=== PATIENT | female | born 1990 | race Caucasian/White ===

== ENCOUNTER 2016-10-11 09:36 | Emergency (ER) | payer MEDICAID ==
--- NOTE | 2016-10-11 11:56 | EDPHY ---
H & P Stated Complaint: Sore throat/URI/flu sxs x 3 days Time Seen by Provider: 10/11/16 11:16 HPI/ROS: CHIEF COMPLAINT: flu-like symptoms HISTORY OF PRESENT ILLNESS: 26-year-old female presents emergency department complaining of cough, nasal congestion, runny nose, sneezing, body aches, sore throat, subjective fevers and chills that started 2 days ago. Patient works at a preschool. Patient has been taking ibuprofen with minimal relief. She denies neck pain. No difficulty swallowing or managing her secretions. No chest pain. Patient denies nausea, vomiting, diarrhea, no abdominal pain. REVIEW OF SYSTEMS: A comprehensive 10 point review of systems is otherwise negative aside from elements mentioned in the history of present illness. Source: Patient Exam Limitations: No limitations - Personal History LMP (Females 10-55): 8-14 Days Ago Current Tetanus Diphtheria and Acellular Pertussis (TDAP): Yes - Medical/Surgical History Hx Asthma: No Hx Chronic Respiratory Disease: No Hx Diabetes: No Hx Cardiac Disease: No Hx Renal Disease: No Hx Cirrhosis: No Hx Alcoholism: No Hx HIV/AIDS: No Hx Splenectomy or Spleen Trauma: No Other PMH: healthy - Social History Smoking Status: Current some day smoker - Physical Exam Exam: General: Alert, nontoxic. ENT: Tympanic membranes clear, external auditory canal, external ear and surrounding soft tissue including over the mastoid unremarkable. Nasopharynx is injected, there is rhinorrhea. Oropharynx with erythema. There is no exudate. No tonsillar hypertrophy. No asymmetry. The uvula is midline. No elevation of tongue. There is no hoarseness. No drooling, patient has good control of their oral secretions. No trismus. No stridor. Cardiac: Regular rate and rhythm. Respiratory: Lungs clear to auscultation bilaterally. Neurological: no meningismus. Skin: No rashes. Constitutional: Initial Vital Signs Temperature (C) 36.7 C 10/11/16 09:45 Heart Rate 83 10/11/16 09:45 Respiratory Rate 17 10/11/16 09:45 Blood Pressure 96/58 L 10/11/16 09:45 O2 Sat (%) 98 10/11/16 09:45 O2 Delivery Mode Room Air Allergies/Adverse Reactions: No Known Allergies Allergy (Verified 10/11/16 09:47) Home Medications: Medication Instructions Recorded No Home Meds 04/13/14 Albuterol [Proventil Inhaler] 1 - 2 puffs IH Q4H #1 mdi 10/11/16 Fluticasone Nasal [Flonase Nasal 1 sprays NASAL DAILY #1 mdi 10/11/16 [place] (RX)] Guaifenesin/Codeine Phosphate 10 ml PO HS PRN #100 ml 10/11/16 [Guaifenesin-Codeine Liquid] Medical Decision Making ED Course/Re-evaluation: Influenza positive, will treat symptomatically. Patient has no evidence of pneumonia. - Data Points Laboratory Results: 10/11/16 10/11/16 10/11/16 Unknown 09:50 09:50 Influenza Typ A,B (DFA) POSITIVE FOR FLU A H (NEGATIVE) Group A Strep Screen NEGATIVE (NEGATIVE) Group A Strep DNA Pending Departure - Departure Disposition: Home, Routine, Self-Care Clinical Impression: Influenza A Condition: Good Instructions: Influenza (ED) Additional Instructions: Take over the counter Tylenol and ibuprofen as instructed. Rest, drink plenty of fluids. Use a saline nasal rinse, humidifier at night, hot steam showers. Use 2 puffs of albuterol inhaler every 4-6 hours as needed for cough, use 1 spray of Flonase in each nostril daily for 7 days. Use [id number] Sudafed and Mucinex as instructed on the package. Take cough syrup at night as prescribed, this has codeine in it, it will cause drowsiness. Return to the ED for difficulty breathing, chest pain, other concerns. Referrals: Farrukh Sapp MD [Primary Care Provider] - As per Instructions Prescriptions: Albuterol [Proventil Inhaler] 1 - 2 puffs IH Q4H #1 mdi Fluticasone Nasal [Flonase Nasal [place] (RX)] 1 sprays NASAL DAILY #1 mdi Guaifenesin/Codeine Phosphate [Guaifenesin-Codeine Liquid] 10 ml PO HS PRN #100 ml PRN Reason: Cough, Moderate
[2016-10-11] MEDS ORDERED: ACETAMINOPHEN 325 MG TAB PO ONE (12:09)
[2016-10-11 12:27] VITALS: BP 96/79; PULSE 64; RESP 18; TEMP 97.9; O2SAT 96
== END 2016-10-11 12:40 | disposition home or self-care (01) ==
DX: J10.1 Influenza due to other identified influenza virus with other respiratory manifestations (principal); F17.200 Nicotine dependence, unspecified, uncomplicated

== ENCOUNTER 2017-10-25 18:05 | Emergency (ER) | payer MEDICAID ==
--- NOTE | 2017-10-25 18:41 | EDPHY ---
H & P Stated Complaint: Flu like sxs today; Dx'd with MRSA yesterday but no testing done Time Seen by Provider: 10/25/17 18:40 HPI/ROS: CHIEF COMPLAINT: Flu symptoms HISTORY OF PRESENT ILLNESS: The patient presents the ED with a 1 day history of flu-like symptoms. She reportedly was diagnosed with a possible MRSA infection around her mouth and on her chest at urgent care 2 days ago. She was prescribed Bactrim. She reports that she has developed fever, cough, back pain over the past 24 hr. Additionally she has developed some urinary frequency. She denies any abdominal pain, vomiting or diarrhea. She feels as if she has had some progressive erythema on her chest and face. REVIEW OF SYSTEMS: A comprehensive 10 point review of systems is otherwise negative aside from elements mentioned in the history of present illness. Source: Patient Exam Limitations: No limitations - Personal History LMP (Females 10-55): 22-28 Days Ago Current Tetanus Diphtheria and Acellular Pertussis (TDAP): Yes - Medical/Surgical History Hx Asthma: No Hx Chronic Respiratory Disease: No Hx Diabetes: No Hx Cardiac Disease: No Hx Renal Disease: No Hx Cirrhosis: No Hx Alcoholism: No Hx HIV/AIDS: No Hx Splenectomy or Spleen Trauma: No Other PMH: healthy - Social History Smoking Status: Current some day smoker - Physical Exam Exam: General Appearance: Alert, no distress Eyes: Pupils equal and round no pallor or injection ENT, Mouth: Mucous membranes moist Respiratory: There are no retractions, lungs are clear to auscultation Cardiovascular: Regular rate and rhythm Gastrointestinal: Abdomen is soft and nontender, no masses, bowel sounds normal Neurological: A&O, normal motor function, normal sensory exam, normal cranial nerves Skin: Warm and dry, no rashes Musculoskeletal: Neck is supple nontender Extremities: symmetrical, full range of motion Constitutional: Initial Vital Signs Temperature (C) 37 C 10/25/17 18:07 Heart Rate 90 10/25/17 18:07 Respiratory Rate 18 10/25/17 18:07 Blood Pressure 102/55 L 10/25/17 18:07 O2 Sat (%) 96 10/25/17 18:07 O2 Delivery Mode Room Air Allergies/Adverse Reactions: No Known Allergies Allergy (Verified 10/25/17 18:06) Home Medications: Medication Instructions Recorded Sulfamethox/Tmp 800/160 mg 1 tab PO 10/25/17 [Bactrim Ds] Medical Decision Making ED Course/Re-evaluation: The patient presents to the emergency department for evaluation of fever, back pain, dysuria, erythema to her chest in the setting of a questionable MRSA infection around her lips and on her chest wall. I feel the patient certainly may be exhibiting some symptoms from a medication reaction from Bactrim. She has no intraoral lesions appreciated. Her vital signs are stable. The patient is noted to have a positive RSV test. Her urinalysis demonstrates no evidence of an infection. At this point time I am not certain the patient is having a MRSA infection I think that she should stop taking her antibiotics. I think she likely is having a viral exanthem from her RSV infection. The patient's urinalysis demonstrates no evidence of an acute infection. Her laboratory studies are reassuring. At this point time the patient will be advised to take Tylenol and ibuprofen as needed for her symptoms. Differential Diagnosis: Differential diagnosis considered includes influenza, RSV, medication reaction, cellulitis, MRSA - Data Points Laboratory Results: Laboratory Results 10/25/17 19:15 10/25/17 19:15 10/25/17 10/25/17 10/25/17 19:31 19:31 19:15 WBC RBC Hgb Hct MCV MCH MCHC RDW Plt Count MPV Neut % (Auto) Lymph % (Auto) [place] % (Auto) Eos % (Auto) Baso % (Auto) Nucleat RBC Rel Count Absolute Neuts (auto) Absolute Lymphs (auto) Absolute Monos (auto) Absolute Eos (auto) Absolute Basos (auto) Absolute Nucleated RBC Immature Gran % Immature Gran # Sodium Potassium Chloride Carbon Dioxide Anion Gap BUN Creatinine Estimated GFR Glucose Calcium Beta HCG, Qual NEGATIVE Urine Color PALE YELLOW Urine Appearance CLEAR Urine pH 7.0 (5.0-7.5) Ur Specific [place] 1.006 (1.002-1.030) Urine Protein NEGATIVE (NEGATIVE) Urine Ketones NEGATIVE (NEGATIVE) Urine Blood NEGATIVE (NEGATIVE) Urine Nitrate NEGATIVE (NEGATIVE) Urine Bilirubin NEGATIVE (NEGATIVE) Urine Urobilinogen NEGATIVE EU EU (0.2-1.0) Ur Leukocyte Esterase NEGATIVE (NEGATIVE) Urine RBC 1-3 /hpf /hpf (0-3) Urine WBC 1-3 /hpf /hpf (0-3) Ur Epithelial Cells TRACE /lpf /lpf (NONE-1+) Urine Glucose NEGATIVE (NEGATIVE) Nasal Influenza A PCR NEGATIVE FOR FLU A (NEGATIVE) Nasal Influenza B PCR NEGATIVE FOR FLU B (NEGATIVE) RSV (PCR) RSV DETECTED H (NEGATIVE) 10/25/17 10/25/17 19:15 19:15 WBC 3.90 10^3/uL 10^3/uL (3.80-9.50) RBC 4.16 10^6/uL L 10^6/uL (4.18-5.33) Hgb 13.7 g/dL g/dL (12.6-16.3) Hct 38.4 % % (38.0-47.0) MCV 92.3 fL fL (81.5-99.8) MCH 32.9 pg pg (27.9-34.1) MCHC 35.7 g/dL g/dL (32.4-36.7) RDW 12.6 % % (11.5-15.2) Plt Count 146 10^3/uL L 10^3/uL (150-400) MPV 9.5 fL fL (8.7-11.7) Neut % (Auto) 63.3 % % (39.3-74.2) Lymph % (Auto) 16.9 % % (15.0-45.0) [place] % (Auto) 18.7 % H % (4.5-13.0) Eos % (Auto) 0.3 % L % (0.6-7.6) Baso % (Auto) 0.5 % % (0.3-1.7) Nucleat RBC Rel Count 0.0 % % (0.0-0.2) Absolute Neuts (auto) 2.47 10^3/uL 10^3/uL (1.70-6.50) Absolute Lymphs (auto) 0.66 10^3/uL L 10^3/uL (1.00-3.00) Absolute Monos (auto) 0.73 10^3/uL 10^3/uL (0.30-0.80) Absolute Eos (auto) 0.01 10^3/uL L 10^3/uL (0.03-0.40) Absolute Basos (auto) 0.02 10^3/uL 10^3/uL (0.02-0.10) Absolute Nucleated RBC 0.00 10^3/uL 10^3/uL (0-0.01) Immature Gran % 0.3 % % (0.0-1.1) Immature Gran # 0.01 10^3/uL 10^3/uL (0.00-0.10) Sodium 137 mEq/L mEq/L (135-145) Potassium 3.9 mEq/L mEq/L (3.5-5.2) Chloride 105 mEq/L mEq/L (97-110) Carbon Dioxide 22 mEq/l mEq/l (22-31) Anion Gap 10 mEq/L mEq/L (8-16) BUN 11 mg/dL mg/dL (7-23) Creatinine 0.7 mg/dL mg/dL (0.6-1.0) Estimated GFR > 60 Glucose 93 mg/dL mg/dL (70-100) Calcium 8.7 mg/dL mg/dL (8.5-10.4) Beta HCG, Qual Urine Color Urine Appearance Urine pH Ur Specific [place] Urine Protein Urine Ketones Urine Blood Urine Nitrate Urine Bilirubin Urine Urobilinogen Ur Leukocyte Esterase Urine RBC Urine WBC Ur Epithelial Cells Urine Glucose Nasal Influenza A PCR Nasal Influenza B PCR RSV (PCR) Medications Given: Discontinued Medications Sodium Chloride (Ns) 1,000 mls @ 0 mls/hr IV EDNOW ONE; Wide Open PRN Reason: Protocol Stop: 10/25/17 18:53 Last Admin: 10/25/17 19:36 Dose: 1,000 mls Departure - Departure Disposition: Home, Routine, Self-Care Clinical Impression: RSV infection Condition: Good Instructions: Respiratory Syncytial Virus (ED) Additional Instructions: 1. You have a viral infection with the Respiratory syncytial virus. 2. I would recommend discontinuing the Bactrim antibiotic at this point time. 3. Please return to the ED for markedly worsening rash, high fever, worsening symptoms or other concerns. Referrals: Farrukh Sapp MD [Primary Care Provider] - As per Instructions
[2017-10-25] MEDS ORDERED: NS 1,000 ML IV ONE (18:52)
[2017-10-25 19:28] LABS: PLATELET COUNT 146 10^3/uL (150-400)
[2017-10-25 20:21] VITALS: BP 98/64; PULSE 79; RESP 16; TEMP 97.4; O2SAT 100
== END 2017-10-25 20:25 | disposition home or self-care (01) ==
DX: R50.9 Fever, unspecified (principal); B97.4 Respiratory syncytial virus as the cause of diseases classified elsewhere; E86.9 Volume depletion, unspecified; F17.200 Nicotine dependence, unspecified, uncomplicated